=== PATIENT | female | born 1970 | race Caucasian/White ===

== ENCOUNTER 2023-03-03 17:44 | Observation (INO) | payer MEDICARE, OTHER ==
[2023-03-03 18:10] VITALS: BMI 20.5
[2023-03-03] MEDS ORDERED: ONDANSETRON 4 MG/2 ML VIAL IVPUSH ONE (18:18)
[2023-03-03] MEDS ORDERED: ONDANSETRON 4 MG/2 ML VIAL ONE (18:48)
[2023-03-03 18:52] LABS: VENOUS BASE EXCESS 0.4 mmol/L (-2-2); VENOUS O2 SATURATION 68.6 % (70-80); VENOUS PCO2 41.2 mmHg (38-52); VENOUS PH 7.404 (7.310-7.410)
[2023-03-03 18:56] LABS: INR 1.13 (0.83-1.09); PROTHROMBIN TIME (PATIENT) 13.1 SEC (9.7-13.0)
[2023-03-03 18:58] LABS: BASO % 0.5 % (0-2.0); EOS % 0.1 % (0-4.5); HEMATOCRIT 44.6 % (32.4-45.2); HEMOGLOBIN 14.8 GM/dL (10.7-15.3); LYMPH % 13.6 % (8-40); MCH 30.1 pg (25.7-33.7); MCHC 33.1 g/dl (32.0-36.0); MEAN PLT VOLUME 10.9 fl (7.5-11.1); MONO % 1.6 % (3.8-10.2); NEUT % 84.2 % (42.8-82.8); PLATELET COUNT 185 10^3/uL (134-434); RBC 4.91 M/mm3 (3.60-5.2); RDW 15.6 % (11.6-15.6); WHITE BLOOD COUNT 7.9 K/mm3 (4.0-10.0)
[2023-03-03 18:59] LABS: ACTIVATED PTT 30.6 SECONDS (25.2-36.5)
[2023-03-03 19:00] LABS: CHLORIDE 106 mmol/L (98-107); SODIUM 136 mmol/L (136-145)
[2023-03-03 19:03] LABS: ALBUMIN 3.6 g/dl (3.4-5.0); BLOOD UREA NITROGEN 17.3 mg/dL (7-18); CALCIUM 9.7 mg/dL (8.5-10.1); CO2 23 mmol/L (21-32); GLUCOSE,RANDOM 289 mg/dL (74-106); LIPASE < 10 U/L (73-393)
[2023-03-03 19:06] LABS: CREATININE 0.8 mg/dL (0.55-1.3); SGOT/AST 69 U/L (15-37)
[2023-03-03 19:08] LABS: ALK PHOS 112 U/L (45-117); BILIRUBIN,TOTAL 0.5 mg/dL (0.2-1); TOT PROT 8.3 g/dl (6.4-8.2)
[2023-03-03 19:09] LABS: ANION GAP 7 mmol/L (4-13); POTASSIUM 7.1 mmol/L (3.5-5.1); SGPT/ALT 25 U/L (13-61)
[2023-03-03 19:37] LABS: LACTIC ACID 2.1 mmol/L (0.4-2.0)
[2023-03-03] MEDS ORDERED: SODIUM CHLORIDE 0.9% 500 ML INFUS.BAG IV ONE ×2 (20:16→21:43)
[2023-03-03] MEDS ORDERED: METOCLOPRAMIDE HCL INJECTION 10 MG/2 ML VIAL IVPUSH ONE (20:16)
[2023-03-03] MEDS ORDERED: FAMOTIDINE 20 MG/50 ML IVPB 20 MG/50 ML MG IVPB ONE ×2 (20:16→20:19)
[2023-03-03] MEDS ORDERED: METOCLOPRAMIDE HCL INJECTION 10 MG/2 ML VIAL ONE (20:19)
[2023-03-03] MEDS ORDERED: LORazepam 2 MG/ML SDV VIAL IVPUSH ONE (20:50)
[2023-03-03 21:19] LABS: POTASSIUM 3.8 mmol/L (3.5-5.1)
[2023-03-03 21:20] LABS: CALCIUM 10.5 mg/dL (8.5-10.1)
[2023-03-03 21:21] LABS: BLOOD UREA NITROGEN 17.6 mg/dL (7-18)
[2023-03-03 21:25] LABS: CREATININE 0.8 mg/dL (0.55-1.3)
[2023-03-04] MEDS ORDERED: ONDANSETRON 4 MG TABLET PO ONE (04:08)
[2023-03-04] MEDS ORDERED: TRIMETHOBENZAMIDE HCL 200MG/2ML INJ IM PRN (05:33)
[2023-03-04] MEDS ORDERED: SODIUM CHLORIDE 1,000 ML IV SCH (05:45)
[2023-03-04] MEDS ORDERED: TRIMETHOBENZAMIDE HCL 200MG/2ML INJ IM ONE (08:09)
[2023-03-04 08:26] LABS: EPI CELLS 12 /uL (0-25.1); HYALINE CASTS 1 /uL (0-3.1); PH,URINE 5.5 (5.0-8.0); URINE APPEARANCE CLEAR; URINE BACTERIA 14 /uL (0-1359); URINE BILIRUBIN NEGATIVE (NEGATIVE); URINE COLOR YELLOW; URINE GLUCOSE (UA) 3+ (NEGATIVE); URINE KETONE 3+ (NEGATIVE); URINE LEUK ESTERASE NEGATIVE (NEGATIVE); URINE NITRITE NEGATIVE (NEGATIVE); URINE PROTEIN 1+ (NEGATIVE); URINE RBC 14 /uL (0-23.9); URINE UROBILINOGEN 0.2 mg/dL (0.2-1.0); URINE WBC 4 /uL (0-25.8)
[2023-03-04 08:53] LABS: BASO % 0.3 % (0-2.0); HEMATOCRIT 41.2 % (32.4-45.2); HEMOGLOBIN 13.6 GM/dL (10.7-15.3); MCH 30.3 pg (25.7-33.7); MCHC 33.1 g/dl (32.0-36.0); MEAN CELL VOLUME 91.6 fl (80-96); MONO % 3.5 % (3.8-10.2); NEUT % 82.2 % (42.8-82.8); PLATELET COUNT 161 10^3/uL (134-434); RDW 15.5 % (11.6-15.6)
[2023-03-04 08:59] LABS: METHADONE, UR NEGATIVE (NEGATIVE); URINE BENZODIAZEPINES NEGATIVE (NEGATIVE)
[2023-03-04 09:00] LABS: COCAINE, UR NEGATIVE (NEGATIVE); PHENCYCLIDINE,URINE NEGATIVE (NEGATIVE); URINE BARBITURATES NEGATIVE (NEGATIVE)
[2023-03-04 09:03] LABS: OPIATES, URI NEGATIVE (NEGATIVE); URINE AMPHETAMINES NEGATIVE (NEGATIVE)
[2023-03-04] MEDS: INSULIN SLIDING SCALE (NOVOLOG) 1 VIAL SQ SCH ×2 (09:05→11:13)
[2023-03-04 09:11] LABS: POTASSIUM 4.1 mmol/L (3.5-5.1)
[2023-03-04 09:15] LABS: ALBUMIN 3.6 g/dl (3.4-5.0); BLOOD UREA NITROGEN 17.1 mg/dL (7-18); MAGNESIUM 1.9 mg/dL (1.8-2.4)
[2023-03-04 09:17] LABS: CREATININE 0.5 mg/dL (0.55-1.3); PHOSPHOROUS 3.2 mg/dL (2.5-4.9)
[2023-03-04 09:18] LABS: BILIRUBIN,TOTAL 0.4 mg/dL (0.2-1); TOT PROT 7.4 g/dl (6.4-8.2)
[2023-03-04] MEDS ORDERED: ENOXAPARIN NA (PORCINE) 40 MG/0.4 ML DISP.SYRIN SQ SCH (10:00)
[2023-03-04] MEDS ORDERED: INSULIN (LEVEMIR) 100 UNITS/ML UNITS SQ ONE (10:09)
[2023-03-04] MEDS ORDERED: METOCLOPRAMIDE HCL 10 MG TABLET (FP) PO ONE (10:24)
[2023-03-04 10:43] VITALS: RESP 18; TEMP 99
[2023-03-04] MEDS ORDERED: METOCLOPRAMIDE HCL 10 MG TABLET (FP) PO SCH (11:00)
[2023-03-04 16:27] VITALS: BP 137/84; PULSE 91
== END 2023-03-04 17:15 | disposition home or self-care (01) ==
LOC: JER 17:44 → JERBED 03-04 04:10
PROVIDERS: ADMIT Internal Medicine
PROC: 3E033GC Introduction of Other Therapeutic Substance into Peripheral Vein, Percutaneous Approach (ICD-10-PCS; principal; 2023-03-04)
PROC: 3E013VG Introduction of Insulin into Subcutaneous Tissue, Percutaneous Approach (ICD-10-PCS; 2023-03-04)
PROC: 3E0337Z Introduction of Electrolytic and Water Balance Substance into Peripheral Vein, Percutaneous Approach (ICD-10-PCS; 2023-03-04)
DX: R11.2 Nausea with vomiting, unspecified (principal); K31.84 Gastroparesis; E11.43 Type 2 diabetes mellitus with diabetic autonomic (poly)neuropathy; Z88.0 Allergy status to penicillin; R63.30 Feeding difficulties, unspecified
CPT/HCPCS: 0241U-QW; 36415; 71045-TC-FY; 80048; 80053; 80307; 81003; 82010; 82272; 82803; 82962; 83036; 83605; 83690; 83735; 84100; 84484; 84703; 85025; 85610; 85730; 87086; 93005; 93010; 96361; 96365; 96372; 96375; 99285-25; G0378

== ENCOUNTER 2024-05-07 15:06 | Observation (INO) | payer MEDICARE, OTHER ==
[2024-05-07] MEDS: ONDANSETRON 4 MG/2 ML VIAL IVPUSH ONE ×2 (15:55→17:18)
[2024-05-07] MEDS ORDERED: ACETAMINOPHEN INJECTION 100 ML ONE (16:33)
[2024-05-07] MEDS ORDERED: ONDANSETRON 4 MG/2 ML VIAL ONE ×2 (16:33→17:13)
[2024-05-07] MEDS ORDERED: FAMOTIDINE 20 MG/50 ML IVPB 20 MG/50 ML MG IVPB ONE (16:33)
[2024-05-07 16:34] LABS: HEMATOCRIT 43.5 % (32.4-45.2); MCHC 32.3 g/dl (32.0-36.0); MEAN CELL VOLUME 92.9 fl (80-96); MEAN PLT VOLUME 11.2 fl (7.5-11.1); PLATELET COUNT 98 10^3/uL (134-434); RBC 4.68 M/mm3 (3.60-5.2); RDW 15.1 % (11.6-15.6); WHITE BLOOD COUNT 16.7 K/mm3 (4.0-10.0)
[2024-05-07] MEDS: SODIUM CHLORIDE 0.9% 500 ML INFUS.BAG IV ONE (16:40)
[2024-05-07] MEDS: ACETAMINOPHEN 1000 MG/100 ML BAG IVPB ONE (16:40)
[2024-05-07 16:59] LABS: CHLORIDE 112 mmol/L (98-107); POTASSIUM 3.4 mmol/L (3.5-5.1); SODIUM 143 mmol/L (136-145)
[2024-05-07 17:01] LABS: CALCIUM 9.8 mg/dL (8.5-10.1)
[2024-05-07] MEDS: FAMOTIDINE 20 MG/50 ML IVPB 20 MG/50 ML MG IVPB ONE (17:01)
[2024-05-07 17:02] LABS: ALBUMIN 3.8 g/dl (3.4-5.0); ANION GAP 8 mmol/L (4-13); BLOOD UREA NITROGEN 13.6 mg/dL (7-18); CO2 23 mmol/L (21-32); GLUCOSE,RANDOM 236 mg/dL (74-106)
[2024-05-07 17:05] LABS: CREATININE 0.8 mg/dL (0.55-1.3); SGOT/AST 23 U/L (15-37); SGPT/ALT 27 U/L (13-61)
[2024-05-07 17:06] LABS: BILIRUBIN,TOTAL 0.9 mg/dL (0.2-1); TOT PROT 7.6 g/dl (6.4-8.2)
[2024-05-07 17:08] LABS: ALK PHOS 118 U/L (45-117)
[2024-05-07 17:16] LABS: ANISOCYTOSIS 1+; MACROCYTOSIS 2+
[2024-05-07] MEDS ORDERED: PANTOPRAZOLE SODIUM 40 MG VIAL ONE (17:51)
[2024-05-07] MEDS ORDERED: METOCLOPRAMIDE HCL INJECTION 10 MG/2 ML VIAL ONE (17:51)
[2024-05-07] MEDS: METOCLOPRAMIDE HCL INJECTION 10 MG/2 ML VIAL IVPB ONE (18:22)
[2024-05-07] MEDS: PANTOPRAZOLE SODIUM 40 MG VIAL IVPUSH ONE (18:22)
[2024-05-07] MEDS: SODIUM CHLORIDE 0.9% 1000 ML INFUS.BAG IV ONE (18:22)
[2024-05-07] MEDS ORDERED: HALOPERIDOL LACTATE 5 MG/ML ONE (19:20)
[2024-05-07] MEDS: HALOPERIDOL LACTATE 5 MG/ML IM ONE (19:32)
[2024-05-07] MEDS: HALOPERIDOL DECANOATE 100 MG/ML IM ONE (19:40)
[2024-05-07] MEDS: KCL 20 MEQ PREMIX BAG 20 MEQ/100 ML INFUS.BAG IVPB ONE (22:50)
[2024-05-07 23:26] LABS: EPI CELLS 17 /uL (0-25.1); HYALINE CASTS 0 /uL (0-3.1); PH,URINE 5.5 (5.0-8.0); URINE APPEARANCE CLOUDY; URINE BACTERIA >9,000 /uL (0-1359); URINE BILIRUBIN NEGATIVE (NEGATIVE); URINE COLOR YELLOW; URINE GLUCOSE (UA) 3+ (NEGATIVE); URINE KETONE 1+ (NEGATIVE); URINE LEUK ESTERASE 2+ (NEGATIVE); URINE NITRITE NEGATIVE (NEGATIVE); URINE PROTEIN 2+ (NEGATIVE); URINE RBC 119 /uL (0-23.9); URINE UROBILINOGEN 0.2 mg/dL (0.2-1.0); URINE WBC 3147 /uL (0-25.8)
[2024-05-08] MEDS: CEFTRIAXONE 1 GM in DEXTROSE 5%-WATER - 100 ML IVPB ONE (00:12)
[2024-05-08] MEDS: CIPROFLOXACIN 400 MG/D5W 400 MG/200 ML IVPB IVPB ONE (00:13)
[2024-05-08 00:34] LABS: YEAST NONE SEEN (NEGATIVE)
[2024-05-08] MEDS: KCL 10 MEQ IVPB 10 MEQ/100 ML INFUS.BAG IVPB SCH (00:58)
[2024-05-08] MEDS ORDERED: KCL 10 MEQ IVPB 10 MEQ/100 ML INFUS.BAG IVPB ONE ×2 (01:21→01:43)
[2024-05-08 08:06] LABS: HEMATOCRIT 42.3 % (32.4-45.2); HEMOGLOBIN 13.7 GM/dL (10.7-15.3); MCH 30.2 pg (25.7-33.7); MCHC 32.4 g/dl (32.0-36.0); MEAN CELL VOLUME 93.1 fl (80-96); MEAN PLT VOLUME 11.3 fl (7.5-11.1); PLATELET COUNT 86 10^3/uL (134-434); RBC 4.54 M/mm3 (3.60-5.2); RDW 15.1 % (11.6-15.6); WHITE BLOOD COUNT 15.1 K/mm3 (4.0-10.0)
[2024-05-08 08:28] LABS: POTASSIUM 3.8 mmol/L (3.5-5.1)
[2024-05-08 08:30] LABS: BLOOD UREA NITROGEN 18.4 mg/dL (7-18); CALCIUM 9.8 mg/dL (8.5-10.1)
[2024-05-08 08:31] LABS: ALBUMIN 3.3 g/dl (3.4-5.0); MAGNESIUM 1.9 mg/dL (1.8-2.4)
[2024-05-08 08:34] LABS: PHOSPHOROUS 2.7 mg/dL (2.5-4.9)
[2024-05-08 08:35] LABS: BILIRUBIN,TOTAL 0.9 mg/dL (0.2-1); TOT PROT 7.2 g/dl (6.4-8.2)
[2024-05-08] MEDS ORDERED: ENOXAPARIN NA (PORCINE) 40 MG/0.4 ML DISP.SYRIN SQ SCH (10:00)
[2024-05-08] MEDS: INSULIN ASPART SLIDING SCALE (NOVOLOG) 1 VIAL SQ SCH (10:17)
[2024-05-08] MEDS: INSULIN (LEVEMIR) 100 UNITS/ML UNITS SQ SCH ×2 (10:53→23:29)
[2024-05-08] MEDS: SODIUM CHLORIDE 1,000 ML IV SCH (10:54)
[2024-05-08 14:19] VITALS: RESP 18
[2024-05-08 20:03] LABS: HIV INTERPRETATION NEGATIVE (NEGATIVE)
[2024-05-08 20:37] LABS: URINE AMPHETAMINES NEGATIVE (NEGATIVE); URINE BENZODIAZEPINES NEGATIVE (NEGATIVE)
[2024-05-08 20:38] LABS: COCAINE, UR NEGATIVE (NEGATIVE); METHADONE, UR NEGATIVE (NEGATIVE); OPIATES, URI POSITIVE (NEGATIVE); PHENCYCLIDINE,URINE NEGATIVE (NEGATIVE); URINE BARBITURATES NEGATIVE (NEGATIVE)
[2024-05-08] MEDS: GABAPENTIN 100 MG CAPSULE PO SCH (22:44)
[2024-05-09 09:54] LABS: HEMATOCRIT 41.2 % (32.4-45.2); HEMOGLOBIN 13.5 GM/dL (10.7-15.3); MCH 30.2 pg (25.7-33.7); MCHC 32.6 g/dl (32.0-36.0); MEAN CELL VOLUME 92.5 fl (80-96); PLATELET COUNT 83 10^3/uL (134-434); RBC 4.46 M/mm3 (3.60-5.2); RDW 14.8 % (11.6-15.6); WHITE BLOOD COUNT 14.4 K/mm3 (4.0-10.0)
[2024-05-09 10:17] LABS: POTASSIUM 4.3 mmol/L (3.5-5.1)
[2024-05-09 10:21] LABS: CALCIUM 9.5 mg/dL (8.5-10.1)
[2024-05-09 10:22] LABS: BLOOD UREA NITROGEN 21.2 mg/dL (7-18)
[2024-05-09 10:25] LABS: CREATININE 0.7 mg/dL (0.55-1.3)
[2024-05-09 10:26] LABS: BILIRUBIN,TOTAL 0.6 mg/dL (0.2-1); TOT PROT 5.8 g/dl (6.4-8.2)
[2024-05-09 10:41] LABS: ALBUMIN 2.6 g/dl (3.4-5.0)
[2024-05-09 10:48] LABS: ANISOCYTOSIS 0; HELMET CELLS 0; HOWELL-JOLLY BODIES 0; MACROCYTOSIS 0; OVALOCYTE 0; ROULEAU 0; SICKELED CELLS 0; TARGET CELLS 0; TEAR DROP CELLS 0; TOXIC GRANULATION 0
[2024-05-09 15:19] VITALS: BMI 19.3
[2024-05-09] MEDS: LACTATED RINGERS SOLUTION 1,000 ML/1,000 ML INFUS.BAG IV SCH (18:23)
[2024-05-10 08:59] LABS: BASO % 0.1 % (0-2.0); HEMOGLOBIN 13.2 GM/dL (10.7-15.3); LYMPH % 4.9 % (8-40); MCH 30.3 pg (25.7-33.7); MCHC 33.1 g/dl (32.0-36.0); MEAN CELL VOLUME 91.5 fl (80-96); MEAN PLT VOLUME 11.2 fl (7.5-11.1); MONO % 6.7 % (3.8-10.2); NEUT % 88.3 % (42.8-82.8); PLATELET COUNT 67 10^3/uL (134-434); RBC 4.37 M/mm3 (3.60-5.2); RDW 14.5 % (11.6-15.6); WHITE BLOOD COUNT 8.9 K/mm3 (4.0-10.0)
[2024-05-10 09:23] LABS: BLOOD UREA NITROGEN 18.6 mg/dL (7-18); CALCIUM 9.2 mg/dL (8.5-10.1)
[2024-05-10 09:24] LABS: ALBUMIN 2.2 g/dl (3.4-5.0)
[2024-05-10 09:27] LABS: CREATININE 0.7 mg/dL (0.55-1.3)
[2024-05-10 09:28] LABS: BILIRUBIN,TOTAL 0.4 mg/dL (0.2-1); TOT PROT 5.5 g/dl (6.4-8.2)
[2024-05-10 17:28] LABS: PH,URINE 6.5 (5.0-8.0); URINE APPEARANCE CLEAR; URINE BILIRUBIN NEGATIVE (NEGATIVE); URINE COLOR YELLOW; URINE GLUCOSE (UA) TRACE (NEGATIVE); URINE KETONE NEGATIVE (NEGATIVE); URINE LEUK ESTERASE 1+ (NEGATIVE); URINE NITRITE NEGATIVE (NEGATIVE); URINE PROTEIN 1+ (NEGATIVE)
[2024-05-10 17:49] LABS: URINE RBC 57.8 /uL (0-23.9); URINE WBC 122.2 /uL (0-25.8)
[2024-05-10 17:50] LABS: EPI CELLS 6.9 /uL (0-25.1); HYALINE CASTS 0.27 /uL (0-3.1); URINE BACTERIA 226.7 /uL (0-1359)
[2024-05-11 10:42] LABS: BASO % 0.1 % (0-2.0); EOS % 0.1 % (0-4.5); HEMATOCRIT 41.5 % (32.4-45.2); HEMOGLOBIN 13.6 GM/dL (10.7-15.3); LYMPH % 9.2 % (8-40); MCHC 32.8 g/dl (32.0-36.0); MEAN CELL VOLUME 91.4 fl (80-96); MONO % 12.5 % (3.8-10.2); NEUT % 78.1 % (42.8-82.8); PLATELET COUNT 66 10^3/uL (134-434); RBC 4.54 M/mm3 (3.60-5.2); RDW 14.6 % (11.6-15.6); WHITE BLOOD COUNT 7.8 K/mm3 (4.0-10.0)
[2024-05-11] MEDS: TRIMETHOBENZAMIDE HCL 200MG/2ML INJ IM PRN (10:58)
[2024-05-11 11:21] LABS: CALCIUM 8.4 mg/dL (8.5-10.1)
[2024-05-11 11:22] LABS: BLOOD UREA NITROGEN 14.1 mg/dL (7-18); MAGNESIUM 2.2 mg/dL (1.8-2.4)
[2024-05-11 11:25] LABS: ALBUMIN 3.1 g/dl (3.4-5.0); CREATININE 0.9 mg/dL (0.55-1.3)
[2024-05-11 11:26] LABS: BILIRUBIN,TOTAL 0.4 mg/dL (0.2-1)
[2024-05-11] MEDS: PANTOPRAZOLE 40 MG TABLET PO SCH (11:35)
[2024-05-11 12:14] VITALS: BP 134/79; PULSE 87; TEMP 98.2
== END 2024-05-11 17:14 | disposition home or self-care (01) ==
LOC: JER 15:06 → UNDOADMOB 05-08 00:18 → JERBED 05-08 00:18 → INTOOBSV 05-08 00:18 → JERBED 05-08 06:05 → J7W 05-08 09:09
PROVIDERS: ADMIT Internal Medicine
PROC: 3E03329 Introduction of Other Anti-infective into Peripheral Vein, Percutaneous Approach (ICD-10-PCS; principal; 2024-05-08)
PROC: 3E033NZ Introduction of Analgesics, Hypnotics, Sedatives into Peripheral Vein, Percutaneous Approach (ICD-10-PCS; 2024-05-08)
PROC: 3E033GC Introduction of Other Therapeutic Substance into Peripheral Vein, Percutaneous Approach (ICD-10-PCS; 2024-05-08)
PROC: 3E0337Z Introduction of Electrolytic and Water Balance Substance into Peripheral Vein, Percutaneous Approach (ICD-10-PCS; 2024-05-08)
PROC: 3E023GC Introduction of Other Therapeutic Substance into Muscle, Percutaneous Approach (ICD-10-PCS; 2024-05-08)
PROC: 3E013VG Introduction of Insulin into Subcutaneous Tissue, Percutaneous Approach (ICD-10-PCS; 2024-05-08)
DX: N10 Acute pyelonephritis (principal); A41.51 Sepsis due to Escherichia coli [E. coli]; N28.86 Ureteritis cystica; B96.20 Unspecified Escherichia coli [E. coli] as the cause of diseases classified elsewhere; E11.9 Type 2 diabetes mellitus without complications; K21.9 Gastro-esophageal reflux disease without esophagitis; F17.210 Nicotine dependence, cigarettes, uncomplicated; F12.90 Cannabis use, unspecified, uncomplicated; E87.0 Hyperosmolality and hypernatremia; I73.9 Peripheral vascular disease, unspecified; K31.84 Gastroparesis; R74.8 Abnormal levels of other serum enzymes; N39.0 Urinary tract infection, site not specified; G62.89 Other specified polyneuropathies; D69.6 Thrombocytopenia, unspecified; Z88.0 Allergy status to penicillin; Z79.4 Long term (current) use of insulin
CPT/HCPCS: 0241U-QW; 36415; 74177-TC; 80053; 80307; 81003; 82010; 82962; 83690; 83735; 84100; 84484; 84702; 85025; 85027; 86803; 87040; 87086; 87186; 87389; 93005; 93010; 96365; 96367; 96372; 96375; 96376; 97116-GP; 97161-GP; 99285-25; G0378; J0131; Q9967